=== PATIENT | female | born 2000 | race Caucasian/White ===

== ENCOUNTER 2022-08-19 15:01 | Observation (INO) | payer OTHER ==
[~2022-08-19 15:01] MED LIST: Magnevist 469MG/ML 20 ML VIAL ONE
[2022-08-19] MEDS ORDERED: Diazepam 10 MG/2 ML SYRINGE ONE (15:28)
[2022-08-19 15:33] LABS: #Eosinphils 0.1 thou/uL (0.0-0.7); #Lymphocytes 2.5 thou/uL (1.20-3.40); #Monocytes 0.3 thou/uL (0.11-0.59); #Neutrophils 2.2 thou/uL (1.40-6.50); %Basophils 0.6 % (0.0-1.0); %Eosinophils 2.7 % (0.0-10.0); %Lymphocytes 48.6 % (21.0-51.0); %Monocytes 6.2 % (0.0-10.0); %Neutrophils 41.9 % (42.0-75.0); Hemoglobin 15.7 g/dL (12.0-16.0); Mean Corpuscular Hemoglobin 31.2 pg (27.0-31.0); Mean Corpuscular Volume 91.8 fl (78.0-98.0); Mean Platelet Volume 8.2 fL (7.4-10.4); Platelet Count 286 10x3/uL (130-400); Red Blood Cell (RBC) Count 5.03 mill/uL (4.20-5.40); White Blood Cell (WBC) Count 5.2 10x3/uL (4.8-10.8)
[2022-08-19 15:37] LABS: BHCG - Serum Negative (NEGATIVE); Pregs Control Background? CLEAR/WHITE (CLR/WHITE); Pregs Control Bar Appear? YES (CONTROL BAR)
[2022-08-19 15:57] LABS: ALT (SGPT) 16 U/L (8-55); AST (SGOT) 17 U/L (5-34); Albumin 4.8 g/dL (3.5-5.0); Alkaline Phosphatase 87 U/L (40-110); Anion Gap 14 mmol/L (10-20); BUN (Urea Nitrogen) 7 mg/dL (7.0-18.7); Bilirubin, Total 0.7 mg/dL (0.2-1.2); CK (CPK) 102 U/L (29-168); Calc. Creatinine Clearance 0 mL/min (70-130); Calcium 10.1 mg/dL (7.8-10.44); Carbon Dioxide 23 mmol/L (22-29); Chloride 107 mmol/L (98-107); Estimated GFR 126; Globulin 3.5 g/dL (2.4-3.5); Glucose 81 mg/dL (70-105); Magnesium 2.3 mg/dL (1.6-2.6); Potassium 3.8 mmol/L (3.5-5.1); Protein, Total 8.3 g/dL (6.0-8.3); Sodium 140 mmol/L (136-145)
[2022-08-19] MEDS ORDERED: Midazolam HCl 2 mg/2 ml Vial ONE ×2 (17:37→19:20)
[2022-08-19] MEDS ORDERED: Magnesium 2 GM/50 ML BAG (IN WATER) ONE (17:37)
[2022-08-19] MEDS ORDERED: levETIRAcetam 500 MG/5 ML VIAL ONE (19:22)
[2022-08-19] MEDS ORDERED: Ondansetron ODT 4 MG TAB PO PRN (21:01)
[2022-08-19] MEDS ORDERED: Ondansetron PF 4 MG/2 ML Vial IVP PRN (21:01)
[2022-08-19] MEDS ORDERED: Acetaminophen 325 MG TAB PO PRN (21:01)
[2022-08-20 00:13] VITALS: BMI 23.1
[2022-08-20] MEDS: Lorazepam 2 MG/ML VIAL SLOW IVP PRN ×2 (04:37→09:39)
[2022-08-20 06:10] LABS: #Eosinphils 0.1 thou/uL (0.0-0.7); #Lymphocytes 2.4 thou/uL (1.20-3.40); #Monocytes 0.3 thou/uL (0.11-0.59); %Basophils 0.9 % (0.0-1.0); %Eosinophils 2.5 % (0.0-10.0); %Lymphocytes 49.1 % (21.0-51.0); %Monocytes 6.4 % (0.0-10.0); %Neutrophils 41.1 % (42.0-75.0); Hemoglobin 14.2 g/dL (12.0-16.0); Mean Corpuscular Hemoglobin 30.7 pg (27.0-31.0); Mean Platelet Volume 8.3 fL (7.4-10.4); Platelet Count 236 10x3/uL (130-400); RBC Distribution Width 11.1 % (11.5-14.5); Red Blood Cell (RBC) Count 4.64 mill/uL (4.20-5.40); White Blood Cell (WBC) Count 4.9 10x3/uL (4.8-10.8)
[2022-08-20 06:46] LABS: Anion Gap 13 mmol/L (10-20); BUN (Urea Nitrogen) 8 mg/dL (7.0-18.7); Calc. Creatinine Clearance 127 mL/min (70-130); Calcium 8.5 mg/dL (7.8-10.44); Carbon Dioxide 22 mmol/L (22-29); Chloride 108 mmol/L (98-107); Estimated GFR 127; Glucose 85 mg/dL (70-105); Magnesium 2.2 mg/dL (1.6-2.6); Phosphorus 3.7 mg/dL (2.3-4.7); Potassium 3.5 mmol/L (3.5-5.1); Sodium 139 mmol/L (136-145)
[2022-08-20] MEDS ORDERED: levETIRAcetam in NS 1,500 MG in Premix Bag 1 BAG IVPB SCH (09:00)
[2022-08-20] MEDS ORDERED: levETIRAcetam 500 MG/5 ML VIAL SLOW IVP SCH (09:00)
[2022-08-20] MEDS ORDERED: Sertraline 100 MG TAB PO SCH ×2 (10:15→21:00)
[2022-08-20] MEDS ORDERED: Diazepam 5 MG TAB PO SCH (13:00)
[2022-08-20 17:17] LABS: Lactic Acid 0.8 mmol/L (0.5-2.2)
[2022-08-20 17:21] LABS: CK (CPK) 205 U/L (29-168); CRP (Inflammatory) Less than 0.50 mg/dL (= or < 0.5)
[2022-08-20] MEDS: Sertraline 100 MG TAB PO SCH (20:53)
[2022-08-20] MEDS: tiZANidine HCl 4 MG TAB PO SCH (20:54)
[2022-08-20] MEDS ORDERED: Diazepam 5 MG TAB PO PRN (21:00)
[2022-08-20] MEDS ORDERED: NORETHINDRONE AC ETH ESTRADIOL PO SCH (21:00)
[2022-08-21 06:44] LABS: #Eosinphils 0.1 thou/uL (0.0-0.7); #Lymphocytes 1.9 thou/uL (1.20-3.40); #Monocytes 0.4 thou/uL (0.11-0.59); #Neutrophils 1.9 thou/uL (1.40-6.50); %Basophils 0.5 % (0.0-1.0); %Eosinophils 3.3 % (0.0-10.0); %Lymphocytes 43.5 % (21.0-51.0); %Neutrophils 44.7 % (42.0-75.0); Mean Corpuscular HGB CONC 34.2 g/dL (32.0-36.0); Mean Corpuscular Hemoglobin 31.8 pg (27.0-31.0); Mean Corpuscular Volume 92.9 fl (78.0-98.0); Mean Platelet Volume 8.1 fL (7.4-10.4); Platelet Count 235 10x3/uL (130-400); RBC Distribution Width 10.8 % (11.5-14.5); Red Blood Cell (RBC) Count 4.71 mill/uL (4.20-5.40); White Blood Cell (WBC) Count 4.3 10x3/uL (4.8-10.8)
[2022-08-21 07:07] LABS: Anion Gap 12 mmol/L (10-20); BUN (Urea Nitrogen) 9 mg/dL (7.0-18.7); Calc. Creatinine Clearance 117 mL/min (70-130); Calcium 9.1 mg/dL (7.8-10.44); Carbon Dioxide 24 mmol/L (22-29); Chloride 106 mmol/L (98-107); Estimated GFR 119; Glucose 76 mg/dL (70-105); Potassium 3.9 mmol/L (3.5-5.1); Sodium 138 mmol/L (136-145)
[2022-08-21] MEDS: tiZANidine HCl 4 MG TAB PO SCH ×3 (08:55→20:40)
[2022-08-21] MEDS ORDERED: Diazepam 10 MG/2 ML SYRINGE IVP SCH (09:45)
[2022-08-21] MEDS ORDERED: Lorazepam 2 MG/ML VIAL ONE (09:48)
[2022-08-21] MEDS ORDERED: Lorazepam 2 MG/ML VIAL SLOW IVP SCH (10:00)
[2022-08-21] MEDS: Sertraline 100 MG TAB PO SCH (20:40)
[2022-08-22 06:22] LABS: #Eosinphils 0.2 thou/uL (0.0-0.7); #Lymphocytes 2.4 thou/uL (1.20-3.40); #Monocytes 0.4 thou/uL (0.11-0.59); #Neutrophils 2.7 thou/uL (1.40-6.50); %Basophils 0.6 % (0.0-1.0); %Eosinophils 2.9 % (0.0-10.0); %Lymphocytes 42.3 % (21.0-51.0); %Monocytes 6.7 % (0.0-10.0); %Neutrophils 47.5 % (42.0-75.0); Hemoglobin 15.2 g/dL (12.0-16.0); Mean Corpuscular HGB CONC 34.2 g/dL (32.0-36.0); Mean Corpuscular Hemoglobin 31.7 pg (27.0-31.0); Mean Corpuscular Volume 92.7 fl (78.0-98.0); Mean Platelet Volume 8.2 fL (7.4-10.4); Platelet Count 233 10x3/uL (130-400); White Blood Cell (WBC) Count 5.7 10x3/uL (4.8-10.8)
[2022-08-22 06:44] LABS: Anion Gap 13 mmol/L (10-20); BUN (Urea Nitrogen) 11 mg/dL (7.0-18.7); Calc. Creatinine Clearance 112 mL/min (70-130); Calcium 9.4 mg/dL (7.8-10.44); Carbon Dioxide 24 mmol/L (22-29); Chloride 104 mmol/L (98-107); Estimated GFR 114; Glucose 78 mg/dL (70-105); Sodium 137 mmol/L (136-145)
[2022-08-22] MEDS: Lorazepam 2 MG/ML VIAL SLOW IVP PRN (08:07)
[2022-08-22] MEDS: tiZANidine HCl 4 MG TAB PO SCH ×2 (08:12→14:38)
[2022-08-22 12:10] LABS: ANA Symphony (Qualitative) Negative (Negative); ANA Symphony (Quantitative) 0.2 Ratio (< 0.7 Negative); dsDNA IgG Antibody 0.7 IU/mL (<10 Negative)
[2022-08-22 15:35] VITALS: BP 106/61; TEMP 98.2
[2022-08-23 03:13] LABS: Myoglobin, Serum 22 ng/mL (25-58)
[2022-08-23 12:10] LABS: Haptoglobin 165 mg/dL (33-278)
== END 2022-08-22 18:10 | disposition home or self-care (01) ==
LOC: ERS 15:01 → ERHOLD 19:52 → NEURO 23:44
PROVIDERS: ADMIT Family Medicine; ATTEND Family Medicine
DX: M62.838 Other muscle spasm (principal); G25.3 Myoclonus; F32.A Depression, unspecified; G89.29 Other chronic pain; M54.50 Low back pain, unspecified; M25.551 Pain in right hip; M25.552 Pain in left hip; M47.812 Spondylosis without myelopathy or radiculopathy, cervical region; M50.221 Other cervical disc displacement at C4-C5 level; M48.02 Spinal stenosis, cervical region; Z79.899 Other long term (current) drug therapy; Z20.822 Contact with and (suspected) exposure to COVID-19
CPT/HCPCS: 36415; 70450; 70553; 72148; 72156; 80048; 80053; 82085; 82550; 82607; 83010; 83605; 83735; 83874; 84100; 84146; 84443; 84703; 85025; 85652; 86038; 86140; 86225; 93005; 95712; 95819; 95957; 96365; 96372; 96375; 96376; A9579; G0378; J1953; J2060; J2250; J3360; J3475; U0003; U0005

== ENCOUNTER 2022-10-25 21:01 | Emergency (ER) | payer OTHER ==
[2022-10-25] MEDS ORDERED: Ondansetron PF 4 MG/2 ML Vial ONE (21:42)
[2022-10-25 21:56] LABS: #Basophils 0.1 thou/uL (0.0-0.2); #Eosinphils 0.1 thou/uL (0.0-0.7); #Lymphocytes 2.4 thou/uL (1.20-3.40); #Monocytes 0.3 thou/uL (0.11-0.59); #Neutrophils 3.1 thou/uL (1.40-6.50); %Basophils 0.9 % (0.0-1.0); %Eosinophils 1.1 % (0.0-10.0); %Lymphocytes 40.2 % (21.0-51.0); %Monocytes 5.2 % (0.0-10.0); %Neutrophils 52.7 % (42.0-75.0); Hemoglobin 14.6 g/dL (12.0-16.0); Mean Corpuscular HGB CONC 35.5 g/dL (32.0-36.0); Mean Corpuscular Hemoglobin 31.9 pg (27.0-31.0); Mean Corpuscular Volume 89.9 fl (78.0-98.0); Mean Platelet Volume 8.3 fL (7.4-10.4); Platelet Count 226 10x3/uL (130-400); RBC Distribution Width 10.7 % (11.5-14.5); Red Blood Cell (RBC) Count 4.57 mill/uL (4.20-5.40)
[2022-10-25 22:06] LABS: BHCG - Serum Negative (NEGATIVE); Pregs Control Background? CLEAR/WHITE (CLR/WHITE); Pregs Control Bar Appear? YES (CONTROL BAR)
[2022-10-25 22:16] LABS: ALT (SGPT) 19 U/L (8-55); AST (SGOT) 18 U/L (5-34); Albumin 4.4 g/dL (3.5-5.0); Alkaline Phosphatase 80 U/L (40-110); Anion Gap 14 mmol/L (10-20); BUN (Urea Nitrogen) 10 mg/dL (7.0-18.7); Bilirubin, Total 0.5 mg/dL (0.2-1.2); CK (CPK) 114 U/L (29-168); Calc. Creatinine Clearance 0 mL/min (70-130); Calcium 9.4 mg/dL (7.8-10.44); Carbon Dioxide 22 mmol/L (22-29); Chloride 104 mmol/L (98-107); Estimated GFR 104; Glucose 95 mg/dL (70-105); Potassium 3.9 mmol/L (3.5-5.1); Protein, Total 7.4 g/dL (6.0-8.3); Sodium 136 mmol/L (136-145)
[2022-10-25] MEDS ORDERED: LORazepam 2 MG/ML SYR.(CARPUJECT) ONE (22:34)
== END 2022-10-25 23:20 | disposition home or self-care (01) ==
LOC: ERS 21:01
DX: R56.9 Unspecified convulsions (principal)
CPT/HCPCS: 80053; 82550; 83735; 84703; 85025; 96374; 96375; J2060; J2405

== ENCOUNTER 2022-11-18 17:59 | Emergency (ER) | payer OTHER, BC ==
[2022-11-18 19:39] LABS: #Basophils 0.1 thou/uL (0.0-0.2); #Eosinphils 0.1 thou/uL (0.0-0.7); #Lymphocytes 3.7 thou/uL (1.20-3.40); #Monocytes 0.5 thou/uL (0.11-0.59); #Neutrophils 4.4 thou/uL (1.40-6.50); %Basophils 1.2 % (0.0-1.0); %Eosinophils 1.6 % (0.0-10.0); %Lymphocytes 41.9 % (21.0-51.0); %Monocytes 5.2 % (0.0-10.0); Hemoglobin 16.6 g/dL (12.0-16.0); Mean Corpuscular Hemoglobin 32.1 pg (27.0-31.0); Mean Corpuscular Volume 91.6 fl (78.0-98.0); Mean Platelet Volume 8.8 fL (7.4-10.4); Platelet Count 299 10x3/uL (130-400); Red Blood Cell (RBC) Count 5.17 mill/uL (4.20-5.40); White Blood Cell (WBC) Count 8.7 10x3/uL (4.8-10.8)
[2022-11-18 20:02] LABS: ALT (SGPT) 24 U/L (8-55); AST (SGOT) 24 U/L (5-34); Albumin 5.1 g/dL (3.5-5.0); Alkaline Phosphatase 114 U/L (40-110); Anion Gap 23 mmol/L (10-20); BUN (Urea Nitrogen) 7 mg/dL (7.0-18.7); Bilirubin, Total 0.8 mg/dL (0.2-1.2); CK (CPK) 122 U/L (29-168); Calc. Creatinine Clearance 0 mL/min (70-130); Calcium 10.2 mg/dL (7.8-10.44); Carbon Dioxide 18 mmol/L (22-29); Chloride 101 mmol/L (98-107); Estimated GFR 108; Globulin 3.7 g/dL (2.4-3.5); Glucose 86 mg/dL (70-105); Magnesium 2.1 mg/dL (1.6-2.6); Potassium 3.2 mmol/L (3.5-5.1); Protein, Total 8.8 g/dL (6.0-8.3); Sodium 139 mmol/L (136-145)
[2022-11-18 20:03] LABS: BHCG - Serum Negative (NEGATIVE); Pregs Control Background? CLEAR/WHITE (CLR/WHITE); Pregs Control Bar Appear? YES (CONTROL BAR)
[2022-11-18] MEDS ORDERED: Acetaminophen 500 MG TAB ONE (20:28)
[2022-11-18] MEDS ORDERED: LORazepam 2 MG/ML SYR.(CARPUJECT) ONE (20:28)
[2022-11-18] MEDS ORDERED: Ketorolac Tromethamine 30 MG/ML VIAL ONE (21:37)
[2022-11-18] MEDS ORDERED: Potassium Chloride 20 MEQ TAB ONE (21:37)
== END 2022-11-18 22:00 | disposition home or self-care (01) ==
LOC: ERS 17:59
DX: M62.838 Other muscle spasm (principal)
CPT/HCPCS: 70450; 71045; 80053; 82550; 83735; 84443; 84484; 84703; 85025; 93005; 96374; 96375; J1885; J2060